=== PATIENT | female | born 1995 | race American Indian/Alaskan Native ===

== ENCOUNTER 2021-04-02 09:35 | Emergency (ER) | payer MEDICAID ==
--- NOTE | 2021-04-02 09:57 | Emergency Department Report ---
ED HPI - General Chief complaint: Abdominal Pain Stated complaint: ABD PAIN Time Seen by Provider: 04/02/21 09:46 Source: patient, EMS Mode of arrival: Ambulatory Limitations: No Limitations - History of Present Illness Initial comments: 25-year-old female presents to the hospital with complaints of abdominal pain, low back pain, and excessive sleep medication use. Patient states she suffers from insomnia and depression which has worsened since being . Patient is currently 13 weeks and is being followed by [facility]. At 3 AM she took 3 [id number] sleep aid medication and took another 3 at 8 AM because she still had trouble sleeping. Patient also admits to poor p.o. intake secondary to nausea, vomiting with p.o. intake, and depression and reports weight loss. This is currently her fourth with history of 1 miscarriage and she has 2 living children. Patient has not received her first ultrasound to confirm intra uterine , she complains of initial cramping suprapubic abdominal pain radiating to the back for the last 3 to 4 hours now reported as a pressure. She denies dysuria, frequency, vaginal bleeding, or fever. Patient also denies suicidal ideation or suicide attempt - Related Data Allergies Allergy/AdvReac Type Severity Reaction Status Date / Time No Known Allergies Allergy Unverified 04/02/21 09:37 ED Review of Systems ROS: Stated complaint: ABD PAIN Other details as noted in HPI Comment: All other systems reviewed and negative ED Past Medical Hx - Past Medical History Previous Medical History?: No - Surgical History Past Surgical History?: No ED Physical Exam - General Limitations: No Limitations - Other Other exam information: General: No acute distress Head: Atraumatic Eyes: normal appearance ENT: Moist mucous membranes Neck: Normal appearance, no midline tenderness Chest: Clear to auscultation bilaterally CV: Regular rate and rhythm Abdomen: Soft, normal bowel sounds, mild suprapubic tenderness, nondistended, no rebound or guarding Back: Normal inspection, back nontender Extremity: Normal inspection, full range of motion Neuro: Alert O x 3, no facial asymmetry, speech clear, no gross motor sensory deficit Psych: Appropriate behavior Skin: No rash ED Course Vital Signs 04/02/21 04/02/21 04/02/21 09:39 09:40 11:39 Temperature 98.8 F Pulse Rate 99 H 87 Respiratory 18 17 Rate Blood Pressure 110/78 100/66 [Right] O2 Sat by Pulse 100 98 100 Oximetry ED Medical Decision Making - Lab Data Result diagrams: 04/02/21 09:59 04/02/21 09:59 Lab Results 04/02/21 04/02/21 04/02/21 Range/Units 09:59 09:59 09:59 WBC 9.7 (4.5-11.0) K/mm3 RBC 5.27 H (3.65-5.03) M/mm3 Hgb 14.3 (10.1-14.3) gm/dl Hct 44.6 H (30.3-42.9) % MCV 85 (79-97) fl MCH 27 L (28-32) pg MCHC 32 (30-34) % RDW 13.8 (13.2-15.2) % Plt Count 192 (140-440) K/mm3 Lymph % (Auto) 16.5 (13.4-35.0) % [place]asper % (Auto) 5.8 (0.0-7.3) % Eos % (Auto) 1.3 (0.0-4.3) % Baso % (Auto) 0.6 (0.0-1.8) % Lymph # (Auto) 1.6 (1.2-5.4) K/mm3 Jasper # (Auto) 0.6 (0.0-0.8) K/mm3 Eos # (Auto) 0.1 (0.0-0.4) K/mm3 Baso # (Auto) 0.1 (0.0-0.1) K/mm3 Seg Neutrophils % 75.8 H (40.0-70.0) % Seg Neutrophils # 7.3 (1.8-7.7) K/mm3 Sodium 133 L (137-145) mmol/L Potassium 3.7 (3.6-5.0) mmol/L Chloride 98.4 (98-107) mmol/L Carbon Dioxide 21 L (22-30) mmol/L Anion Gap 17 mmol/L BUN 9 (7-17) mg/dL Creatinine 0.6 (0.6-1.2) mg/dL Estimated GFR > 60 ml/min BUN/Creatinine Ratio 15 % Glucose 80 (65-100) mg/dL POC Glucose (70-105) mg/dL Calcium 9.2 (8.4-10.2) mg/dL Magnesium 1.70 (1.7-2.3) mg/dL Total Bilirubin 0.40 (0.1-1.2) mg/dL AST 17 (5-40) units/L ALT 15 (7-56) units/L Alkaline Phosphatase 66 (35-129) units/L Total Protein 7.4 (6.3-8.2) g/dL Albumin 4.3 (3.9-5) g/dL Albumin/Globulin Ratio 1.4 % Lipase 10 L (13-60) units/L HCG, Quant [id number] H (0-4) mIU/mL Salicylates (2.8-20.0) mg/dL Acetaminophen (10.0-30.0) ug/mL Plasma/Serum Alcohol (0-0.07) % Blood Type Antibody Screen 04/02/21 04/02/21 04/02/21 Range/Units 09:59 09:59 09:59 WBC (4.5-11.0) K/mm3 RBC (3.65-5.03) M/mm3 Hgb (10.1-14.3) gm/dl Hct (30.3-42.9) % MCV (79-97) fl MCH (28-32) pg MCHC (30-34) % RDW (13.2-15.2) % Plt Count (140-440) K/mm3 Lymph % (Auto) (13.4-35.0) % Jasper % (Auto) (0.0-7.3) % Eos % (Auto) (0.0-4.3) % Baso % (Auto) (0.0-1.8) % Lymph # (Auto) (1.2-5.4) K/mm3 Jasper # (Auto) (0.0-0.8) K/mm3 Eos # (Auto) (0.0-0.4) K/mm3 Baso # (Auto) (0.0-0.1) K/mm3 Seg Neutrophils % (40.0-70.0) % Seg Neutrophils # (1.8-7.7) K/mm3 Sodium (137-145) mmol/L Potassium (3.6-5.0) mmol/L Chloride (98-107) mmol/L Carbon Dioxide (22-30) mmol/L Anion Gap mmol/L BUN (7-17) mg/dL Creatinine (0.6-1.2) mg/dL Estimated GFR ml/min BUN/Creatinine Ratio % Glucose (65-100) mg/dL POC Glucose (70-105) mg/dL Calcium (8.4-10.2) mg/dL Magnesium (1.7-2.3) mg/dL Total Bilirubin (0.1-1.2) mg/dL AST (5-40) units/L ALT (7-56) units/L Alkaline Phosphatase (35-129) units/L Total Protein (6.3-8.2) g/dL Albumin (3.9-5) g/dL Albumin/Globulin Ratio % Lipase (13-60) units/L HCG, Quant (0-4) mIU/mL Salicylates < 0.3 L (2.8-20.0) mg/dL Acetaminophen 5.0 L (10.0-30.0) ug/mL Plasma/Serum Alcohol < 0.01 (0-0.07) % Blood Type Antibody Screen 04/02/21 04/02/21 Range/Units 09:59 12:50 WBC (4.5-11.0) K/mm3 RBC (3.65-5.03) M/mm3 Hgb (10.1-14.3) gm/dl Hct (30.3-42.9) % MCV (79-97) fl MCH (28-32) pg MCHC (30-34) % RDW (13.2-15.2) % Plt Count (140-440) K/mm3 Lymph % (Auto) (13.4-35.0) % Jasper % (Auto) (0.0-7.3) % Eos % (Auto) (0.0-4.3) % Baso % (Auto) (0.0-1.8) % Lymph # (Auto) (1.2-5.4) K/mm3 Jasper # (Auto) (0.0-0.8) K/mm3 Eos # (Auto) (0.0-0.4) K/mm3 Baso # (Auto) (0.0-0.1) K/mm3 Seg Neutrophils % (40.0-70.0) % Seg Neutrophils # (1.8-7.7) K/mm3 Sodium (137-145) mmol/L Potassium (3.6-5.0) mmol/L Chloride (98-107) mmol/L Carbon Dioxide (22-30) mmol/L Anion Gap mmol/L BUN (7-17) mg/dL Creatinine (0.6-1.2) mg/dL Estimated GFR ml/min BUN/Creatinine Ratio % Glucose (65-100) mg/dL POC Glucose 58 L (70-105) mg/dL Calcium (8.4-10.2) mg/dL Magnesium (1.7-2.3) mg/dL Total Bilirubin (0.1-1.2) mg/dL AST (5-40) units/L ALT (7-56) units/L Alkaline Phosphatase (35-129) units/L Total Protein (6.3-8.2) g/dL Albumin (3.9-5) g/dL Albumin/Globulin Ratio % Lipase (13-60) units/L HCG, Quant (0-4) mIU/mL Salicylates (2.8-20.0) mg/dL Acetaminophen (10.0-30.0) ug/mL Plasma/Serum Alcohol (0-0.07) % Blood Type O POSITIVE Antibody Screen Negative - Radiology Data Radiology results: report reviewed ULTRASOUND OBSTETRIC INDICATION / CLINICAL INFORMATION: aprox 13 weeks preg, abd pain, back pain. Clinical Gestational Age (GA) in weeks, days: 14, 2 TECHNIQUE: Transabdominal. COMPARISON: None FINDINGS: GESTATIONAL SAC: Well-defined oval shape and intrauterine in location. YOLK SAC: Not seen EMBRYO/FETUS: No significant abnormality. - [place]-Rump Length = 3.9 cm = 10, 6 weeks, days - Heart Rate, beats per minute (if present) = 174 ADNEXA: No significant abnormality. FREE FLUID: Minimal. ADDITIONAL FINDINGS: Small subchorionic hemorrhage constituting less than 25% of the subchorionic space. There is intramural fibroid in the uterus within the anterior uterine body measuring up to 2.4 cm. IMPRESSION: 1. Single, living intrauterine with estimated sonographic age of 10, 4 weeks, days. Incidentally noted small subchorionic hemorrhage constituting less than 25% of the subchorionic space. Intramural fibroid within the anterior uterine body. - Medical Decision Making 25-year-old female initially denies suicidal ideation during my interview but informed mental health key account representative of severe depression and suicidal thoughts. 1013 recommended. Patient presents with symptoms of dehydration and treated with 1 L of D5 NS. No vomiting in the ED. Ultrasound confirms 10-week IUP with subchorionic hemorrhage. Patient is Rh+. Urine collection pending Critical Care Time: No Critical care attestation.: If time is entered above; I have spent that time in minutes in the direct care of this critically ill patient, excluding procedure time. ED Disposition Clinical Impression: Suicidal ideation, Depression, 10 weeks gestation of , Subchorionic hemorrhage, Uterine fibroid Disposition: [address] [place] [address] Is pt being admited?: No Condition: Stable Instructions: Abdominal Pain (ED) Additional Instructions: OUTPATIENT MENTAL HEALTH RESOURCES [facility] Bravo Priest MD: [address] [place] [address] [place] [address] [facility]: [facility] [address] [place] [address] [place] [address] [phone] [facility]: [facility] Healthcare: [address] [facility] [place] [address] [facility] [id number] [facility]: Tarun Rasmussen MD: [address] [facility] [id number] [facility]: [address] [place], [place] [id number] [phone] [place] CRISIS AND ACCESS LINE: Time of Disposition: 15:05
[2021-04-02] MEDS ORDERED: D5W/0.9% NACL 1,000 ML IV SCH (10:00)
[2021-04-02 10:34] LABS: Basophils # (Auto) 0.1 K/mm3 (0.0-0.1); Basophils % (Auto) 0.6 % (0.0-1.8); Eosinophils # (Auto) 0.1 K/mm3 (0.0-0.4); Eosinophils % (Auto) 1.3 % (0.0-4.3); Hematocrit 44.6 % (30.3-42.9); Hemoglobin 14.3 gm/dl (10.1-14.3); Lymphocytes # (Auto) 1.6 K/mm3 (1.2-5.4); Lymphocytes % (Auto) 16.5 % (13.4-35.0); Mean Corpuscular HGB Conc 32 % (30-34); Mean Corpuscular Volume 85 fl (79-97); Monocytes # (Auto) 0.6 K/mm3 (0.0-0.8); Monocytes % (Auto) 5.8 % (0.0-7.3); Platelet Count 192 K/mm3 (140-440); Red Blood Count 5.27 M/mm3 (3.65-5.03); Red Cell Distribution Width 13.8 % (13.2-15.2)
[2021-04-02 10:43] LABS: Alanine Aminotransferase 15 units/L (7-56); Albumin 4.3 g/dL (3.9-5); Blood Urea Nitrogen 9 mg/dL (7-17); Calcium 9.2 mg/dL (8.4-10.2); Hemolysis Index 7
[2021-04-02 10:44] LABS: BUN/Creatinine Ratio 15
--- NOTE | 2021-04-02 11:03 | Ultrasound Report ---
ULTRASOUND OBSTETRIC INDICATION / CLINICAL INFORMATION: aprox 13 weeks preg, abd pain, back pain. Clinical Gestational Age (GA) in weeks, days: 14, 2 TECHNIQUE: Transabdominal. COMPARISON: None FINDINGS: GESTATIONAL SAC: Well-defined oval shape and intrauterine in location. YOLK SAC: Not seen EMBRYO/FETUS: No significant abnormality. - [place]-Rump Length = 3.9 cm = 10, 6 weeks, days - Heart Rate, beats per minute (if present) = 174 ADNEXA: No significant abnormality. FREE FLUID: Minimal. ADDITIONAL FINDINGS: Small subchorionic hemorrhage constituting less than 25% of the subchorionic spa ce. There is intramural fibroid in the uterus within the anterior uterine body measuring up to 2.4 cm . IMPRESSION: 1. Single, living intrauterine with estimated sonographic age of 10, 4 weeks, days. Incide ntally noted small subchorionic hemorrhage constituting less than 25% of the subchorionic space. Intr amural fibroid within the anterior uterine body. Signer Name: Adonay Urbano DO Signed: 04/02/2021 10:58 AM Workstation Name: [id number]
[2021-04-02] MEDS ORDERED: ONDANSETRON 4 MG/2 ML INJ IV ONE (11:27)
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
[2021-04-02] MEDS: SERTRALINE 25 MG TAB PO SCH (12:48)
[2021-04-02] MEDS ORDERED: MELATONIN 5 MG TAB PO PRN (22:00)
--- NOTE | 2021-04-03 10:36 | Progress Note ---
Subjective - Reason for Consult Consult date: 04/03/21 Reason for consult: depression, SI - Chief Complaint Chief complaint: The patient was seen today, she still verbalizes being "very much so depressed." When asked was she still feeling suicidal, the patient replies "I don't know how I feel." She also replied "I don't know" when asking if she was having any hallucinations. The patient says "the medication helped for a little bit yesterday, but I'm just so depressed." REVIEW OF SYSTEMS Constitutional: Negative for weight loss ENT: Negative for stridor Respiratory: Negative for cough or hemoptysis All other systems reviewed and are negative MENTAL STATUS EXAMINATION General Appearance and Behavior: Age appropriate, good hygiene, wearing appropriate clothes. anxious Cooperation: Cooperative Psychomotor Behavior: Psychomotor normal Mood: depressed, anxious Affect and affective range: congruent with stated mood, tearful Thought Process: illogical, racing thoughts Thought Content: SI, depression, Speech: Normal tone and pace Suicidal Ideation: Yes Homicidal Ideation: Denies Hallucinations: Denies Delusions: None elicited Impulse Control:Poor Insight and Judgment: Poor insight and fair judgment Memory: Limited Attention: attentive Orientation: a/o x 3 Assessment (1) Major Depressive Disorder (2) Generalized Anxiety Disorder Current Visit: Yes Status: Acute Treatment Plan 1013 Increase Zoloft 50mg po daily Melatonin 5mg po prn insomnia Medical: per primary Disposition: Recommend acute psychiatric inpatient treatment Will follow. Thanks Case staffed with Dr. John Mental Status Exam - Vital signs Last Vital Signs Temp 98.8 F 04/02/21 09:40 Pulse 71 04/02/21 19:45 Resp 12 04/02/21 19:45 BP 121/71 04/02/21 19:45 Pulse Ox 100 04/02/21 19:45
[2021-04-03] MEDS ORDERED: ARIPiprazole 5 MG TAB PO SCH (11:00)
[2021-04-03] MEDS: SERTRALINE 25 MG TAB PO SCH (11:48)
[2021-04-04 08:41] VITALS: BP 100/67
--- NOTE | 2021-04-04 09:58 | Progress Note ---
Subjective - Reason for Consult Consult date: 04/04/21 Reason for consult: depression, SI - Chief Complaint Chief complaint: The patient was seen today. She says she's doing much better besides back and stomach pain. The patient is calm, and cooperative. She says she slept okay. The patient says "I thought about my and my kids. Being here has made me think." She says "I'm so grateful and had so much time to think being here." She says "I want to talk to my . I got a lot to live for." The patient says her children normally sleep with her. She says "I thought about them and being away from my family. I am no longer suicidal." The patient asks if she can see a therapist. She says "I think that's going to by matthews for me." She denies hallucinations of any kind. The patient also denies homicidal thoughts, or any fear of endangerment for herself or others. REVIEW OF SYSTEMS Constitutional: Negative for weight loss ENT: Negative for stridor Respiratory: Negative for cough or hemoptysis All other systems reviewed and are negative MENTAL STATUS EXAMINATION General Appearance and Behavior: Age appropriate, good hygiene, wearing appropriate clothes. calm and cooperative Cooperation: Cooperative Psychomotor Behavior: Psychomotor normal Mood: better Affect and affective range: congruent with stated mood, euthymic Thought Process: goal directed Thought Content: optimism Speech: Normal tone and pace Suicidal Ideation: Denies Homicidal Ideation: Denies Hallucinations: Denies Delusions: None elicited Impulse Control: Limited Insight and Judgment: Normal insight and fair judgment Memory: Limited Attention: attentive Orientation: a/o x 3 Assessment (1) Major Depressive Disorder (2) Generalized Anxiety Disorder Current Visit: Yes Status: Acute Treatment Plan d/c 1013 Zoloft 50mg po daily Melatonin 5mg po qhs prn insomnia Medical: per primary Disposition: Do not Recommend acute psychiatric inpatient treatment. The patient understands that if SI/HI or fear of endangerment arise she is to seek immediate assistance The medical coding instructor to give the patient all necessary resources, and complete safety plan The patient to follow up with outpatient psych in 7 to 14 days upon discharge Will sign off. Thanks [facility] staffed with Dr. John Mental Status Exam - Vital signs Last Vital Signs Temp 97.2 F L 04/04/21 08:40 Pulse 92 H 04/04/21 08:40 Resp 18 04/04/21 08:40 BP 100/67 04/04/21 08:40 Pulse Ox 97 04/04/21 08:40
[2021-04-04] MEDS ORDERED: SERTRALINE 50 MG TAB PO SCH (10:00)
[2021-04-04] MEDS ORDERED: ONDANSETRON 4 MG ODT TAB PO ONE (11:29)
== END 2021-04-04 12:05 | disposition home or self-care (01) ==
LOC: ED 09:35
DX: O99.341 Other mental disorders complicating pregnancy, first trimester (principal); F32.9 Major depressive disorder, single episode, unspecified; O26.891 Other specified pregnancy related conditions, first trimester; D25.9 Leiomyoma of uterus, unspecified; O20.8 Other hemorrhage in early pregnancy; Z3A.10 10 weeks gestation of pregnancy
CPT/HCPCS: 36415; 76801; 80053; 82962; 83690; 83735; 84702; 85025; 86850; 86900; 86901; 96374; 99285; J2405; J7042; 80320; J3490; G0480; Q0162